=== PATIENT | male | born 1995 | race Caucasian/White ===

== ENCOUNTER 2017-08-16 15:08 | Emergency (ER) | payer OTHER ==
[~2017-08-16] VITALS: Ht 190.5 cm; Wt 72.6 kg
[~2017-08-16 15:08] MED LIST: TUSNEL
[2017-08-16] MEDS ORDERED: KETO10TA2 PO (17:38)
[2017-08-16] MEDS ORDERED: ZITHROMAX TRI-500 MG PO (17:38)
[2017-08-16] MEDS ORDERED: FLONASE ALLERG9.9 ML NASAL (17:38)
== END 2017-08-16 17:51 | disposition home or self-care (01) ==
LOC: ER 15:08
DX: J32.8 Other chronic sinusitis (principal)

== ENCOUNTER 2017-10-23 12:37 | Emergency (ER) | payer OTHER ==
[~2017-10-23] VITALS: Ht 188 cm; Wt 72.6 kg
[~2017-10-23 12:37] MED LIST changes: +FLONASE ALLERG9.9 ML NASAL; +KETO10TA2 PO; +ZITHROMAX TRI-500 MG PO
== END 2017-10-23 18:01 | disposition home or self-care (01) ==
LOC: ER 12:37
DX: R53.81 Other malaise (principal); R42 Dizziness and giddiness

== ENCOUNTER → 2020-02-12 | Emergency (ER) | payer OTHER ==
[~2020-02-12] VITALS: Ht 188 cm; Wt 77.1 kg
[~2020-02-12] MED LIST changes: +MUCINEX DM ER1 EAC1 PO; +SINGULAIR10 MG; +SYMBICORT 16010.2 GM IH; +TESSALON PERLE100 M1 PO; +ZITHROMAX500 MG PO
== END | disposition home or self-care (01) ==
LOC: ER 22:38
DX: R06.02 Shortness of breath (principal); F06.4 Anxiety disorder due to known physiological condition

== ENCOUNTER 2020-02-20 23:26 | Emergency (ER) | payer OTHER ==
[~2020-02-20] VITALS: Ht 188 cm; Wt 77.1 kg
[~2020-02-20 23:26] MED LIST changes: -MUCINEX DM ER1 EAC1 PO; -SINGULAIR10 MG; -SYMBICORT 16010.2 GM IH; -TESSALON PERLE100 M1 PO; -ZITHROMAX500 MG PO
[2020-02-20] MEDS ORDERED: SINGULAIR10 MG (23:38)
[2020-02-21] MEDS ORDERED: TESSALON PERLE100 M1 PO (02:33)
[2020-02-21] MEDS ORDERED: MUCINEX DM ER1 EAC1 PO (02:33)
[2020-02-21] MEDS ORDERED: ZITHROMAX500 MG PO (02:33)
[2020-02-21] MEDS ORDERED: SYMBICORT 16010.2 GM IH (02:33)
== END 2020-02-21 02:52 ==
LOC: ER 23:26
DX: J06.9 Acute upper respiratory infection, unspecified (principal); B96.0 Mycoplasma pneumoniae [M. pneumoniae] as the cause of diseases classified elsewhere; R07.89 Other chest pain; Z20.828 Contact with and (suspected) exposure to other viral communicable diseases

== ENCOUNTER 2020-05-25 10:47 | Emergency (ER) | payer OTHER ==
[~2020-05-25] VITALS: Ht 188 cm; Wt 77.1 kg
[~2020-05-25 10:47] MED LIST changes: +MUCINEX DM ER1 EAC1 PO; +SINGULAIR10 MG; +SYMBICORT 16010.2 GM IH; +TESSALON PERLE100 M1 PO; +ZITHROMAX500 MG PO
== END 2020-05-25 18:45 | disposition home or self-care (01) ==
LOC: ER 10:47
DX: R07.89 Other chest pain (principal); R10.11 Right upper quadrant pain

== ENCOUNTER 2021-06-27 01:30 | Emergency (ER) | payer OTHER ==
[~2021-06-27] VITALS: Ht 188 cm; Wt 88.9 kg
== END 2021-06-27 10:30 | disposition home or self-care (01) ==
LOC: ER 01:30
DX: U07.1 COVID-19 (principal)

== ENCOUNTER → 2022-06-22 | Emergency (ER) | payer OTHER | END | disposition left against medical advice (07) | LOC: ER 13:23 | DX: Z53.21 Procedure and treatment not carried out due to patient leaving prior to being seen by health care provider (principal) ==